=== PATIENT | male | born 1965 | race Two or more races ===

== ENCOUNTER 2018-10-11 07:11 | Observation (INO) | payer OTHER ==
[2018-10-11 07:22] VITALS: BMI 23.0
--- NOTE | 2018-10-11 09:15 | PDOC ---
History of Present Illness - General Chief Complaint: Urinary Problem Stated Complaint: DIZZINESS Time Seen by Provider: 10/11/18 08:10 History Source: Patient Exam Limitations: No Limitations - History of Present Illness Initial Comments: 10/11/18 09:07 53 yo M with a hx of HTN presents to the emergency room with stated chief complaint of hematuria. Per the patient, he states he was having intercourse with his last night when he felt a throbbing sensation in his uncircumcised penis with an eventual snapping sensation. He denies pain, however he had "lots of blood pour out" of the meatus. He endorses having the ability to acquire an erection. This morning, he had an episode of hematuria described as "pure blood" at approximately 6am that was painless. He denies the following: fever, chills, nausea, vomiting, ears/nose/throat pain, visual changes, chest pain, SOB, abdominal pain, dysuria, diarrhea, hematochezia, and leg pain/swelling Pmhx: Refer to above Shx: None Meds: volsartan Allergies: NKDA Social: Denies tobacco, alcohol, and substance abuse. Past History - Past Medical History Allergies/Adverse Reactions: Allergies Allergy/AdvReac Type Severity Reaction Status Date / Time No Known Allergies Allergy Verified 10/11/18 07:19 Home Medications: Ambulatory Orders Losartan/Hydrochlorothiazide [Hyzaar 100-25 Tablet] 1 each PO DAILY 10/11/18 COPD: No HTN: Yes - Suicide/Smoking/Psychosocial Hx Smoking History: Never smoked *Physical Exam - Vital Signs Last Vital Signs Temp Pulse Resp BP Pulse Ox 98 F 78 18 137/87 99 10/11/18 07:14 10/11/18 07:14 10/11/18 07:14 10/11/18 07:14 10/11/18 07:14 - Physical Exam General Appearance: Yes: Nourished, Appropriately Dressed. No: Apparent Distress, Intoxicated Moderate Sedation - Procedure Monitoring Vital Signs: Procedure Monitoring Vital Signs Temperature 98 F 10/11/18 07:14 Pulse Rate 78 10/11/18 07:14 Respiratory Rate 18 10/11/18 07:14 Blood Pressure 137/87 10/11/18 07:14 O2 Sat by Pulse Oximetry (%) 99 10/11/18 07:14 ED Treatment Course - LABORATORY CBC & Chemistry Diagram: 10/11/18 17:14 10/11/18 09:27 Medical Decision Making - Medical Decision Making 10/11/18 14:[address] Gonsales. Will repeat cbc per his request at 5:30 pm to evaluate stability of hemoglobin. *DC/Admit/Observation/Transfer Diagnosis at time of Disposition: Urethral bleeding Hematuria Qualifiers: Hematuria type: unspecified type Qualified Code(s): R31.9 - Hematuria, unspecified - Discharge Dispostion Disposition: HOME Condition at time of disposition: Improved - Referrals - Patient Instructions - Post Discharge Activity
[2018-10-11 09:27] LABS: URINE APPEARANCE CLEAR; URINE BILIRUBIN NEGATIVE (<2.0 mg/dL); URINE COLOR LTYELLOW; URINE GLUCOSE (UA) NEGATIVE (NEGATIVE); URINE KETONE NEGATIVE (NEGATIVE); URINE LEUK ESTERASE NEGATIVE (NEGATIVE); URINE NITRITE NEGATIVE (NEGATIVE); URINE PROTEIN NEGATIVE (NEGATIVE); URINE UROBILINOGEN NEGATIVE mg/dL (0.2-1.0)
[2018-10-11 09:48] LABS: BASO % 0.5 % (0-2.0); EOS % 1.5 % (0-4.5); HEMATOCRIT 46.7 % (35.4-49); HEMOGLOBIN 16.3 GM/dL (11.7-16.9); LYMPH % 34.8 % (8-40); MCH 29.7 pg (25.7-33.7); MCHC 34.9 g/dl (32.0-35.9); MEAN CELL VOLUME 85.2 fl (80-96); MEAN PLT VOLUME 8.7 fl (7.5-11.1); MONO % 11.4 % (3.8-10.2); NEUT % 51.8 % (42.8-82.8); PLATELET COUNT 255 K/MM3 (134-434); RBC 5.49 M/mm3 (4.00-5.60); RDW 13.4 % (11.9-15.9); WHITE BLOOD COUNT 3.6 K/mm3 (4.0-10.0)
--- NOTE | 2018-10-11 10:21 | PDOC ---
Attending Attestation - Resident Resident Name: Sebastian Hill - ED Attending Attestation I have performed the following: I have examined & evaluated the patient, The case was reviewed & discussed with the resident, I agree w/resident's findings & plan, Exceptions are as noted - HPI HPI: 10/11/18 10:19 53 M with h/o HTN presents to ED with bleeding from his penis after sex. Pt states he was having sex w/ his when he felt a "snap". Denies any significant pain but states that he saw blood coming out of his meatus. Denies swelling to scrotum or penis. Did not see any lacerations. No F/C. No abdominal/ flank pain. - Physicial Exam PE: 10/11/18 10:20 "GENERAL: Awake, alert, and fully oriented, in no acute distress. HEAD: No signs of trauma EYES: PERRLA, EOMI, sclera anicteric, conjunctiva clear ENT: Auricles normal inspection, hearing grossly normal, nares patent, oropharynx clear without exudates. Moist mucosa NECK: Nontender, no stepoffs, Normal ROM, supple, no lymphadenopathy, JVD, or masses LUNGS: Breath sounds equal, clear to auscultation bilaterally. No wheezes, and no crackles HEART: Regular rate and rhythm, normal S1 and S2, no murmurs, rubs or gallops ABDOMEN: Soft, nontender, normoactive bowel sounds. No guarding, no rebound. No masses EXTREMITIES: Normal range of motion, no edema. No clubbing or cyanosis. No cords, erythema, or tenderness NEUROLOGICAL: Cranial nerves II through XII intact. 5/5 strength and sensation in all extremities, Normal speech, normal gait, normal cerebellar function SKIN: Warm, Dry, normal turgor, no rashes or lesions noted. : blood at meatus, uncircumcised, frenulum intact, no scrotal pain or masses, no external signs of trauma - Medical Decision Making 10/11/18 10:21 53 M with bleeding from urethral meatus after sex. No signs of external trauma. Concerning for urethral injury. - Labs, UA - Urology c/s 10/11/18 12:29 Labs wnl UA with + WBC and RBCs Dr. Hill spoke with Dr. Gonsales, who recommends abx and outpt f/u for cysto Will repeat CBC at this time, if stable will DC 10/11/18 14:30 Repeat CBC with 1.4u drop in Hb Dr. Gonsales paged once more to discuss plan 10/11/18 14:34 Dr. Gonsales recommends continued trending of CBC Will admit obs at this time
[2018-10-11 10:29] LABS: ALBUMIN 4.2 g/dl (3.4-5.0); ALK PHOS 65 U/L (45-117); ANION GAP 7 MMOL/L (8-16); BILIRUBIN,TOTAL 0.8 mg/dL (0.2-1); BLOOD UREA NITROGEN 22 mg/dL (7-18); CALCIUM 9.2 mg/dL (8.5-10.1); CHLORIDE 99 mmol/L (98-107); CO2 31 mmol/L (21-32); CREATININE 0.8 mg/dL (0.55-1.3); GLUCOSE,RANDOM 107 mg/dL (74-106); POTASSIUM 3.7 mmol/L (3.5-5.1); SGOT/AST 17 U/L (15-37); SGPT/ALT 27 U/L (13-61); SODIUM 137 mmol/L (136-145); TOT PROT 7.4 g/dl (6.4-8.2)
[2018-10-11 13:24] LABS: BASO % 0.5 % (0-2.0); HEMATOCRIT 42.6 % (35.4-49); HEMOGLOBIN 14.9 GM/dL (11.7-16.9); LYMPH % 30.2 % (8-40); MCH 29.6 pg (25.7-33.7); MCHC 34.9 g/dl (32.0-35.9); MEAN CELL VOLUME 84.7 fl (80-96); MEAN PLT VOLUME 8.8 fl (7.5-11.1); MONO % 10.1 % (3.8-10.2); NEUT % 58.2 % (42.8-82.8); PLATELET COUNT 251 K/MM3 (134-434); RBC 5.02 M/mm3 (4.00-5.60); RDW 13.2 % (11.9-15.9); WHITE BLOOD COUNT 3.9 K/mm3 (4.0-10.0)
--- NOTE | 2018-10-11 15:17 | HP ---
CHIEF COMPLAINT: hematuria PCP: n/a HISTORY OF PRESENT ILLNESS: Patient is a 53 yo, honduran speaking M with a PMHx of HTN, presented after noticing gross hematuria while urinating. He says he was having sexual intercouse with his last night when he felt a throbbing sensation and a snap. He says his was on top and he felt his penis bend. He then had blood pour out of his meatus. This morning he woke up and also noticed more hematuria. He currently denies pain. In the ER he urinated once and as he was finishing, gross blood was noticed, which was witnessed by ED staff. Patient denies dizziness, sob, nausea, vomiting. ER course was notable for: (1) Hgb 16.3 > 14.9 (2) Dr. Gonsales notified. Wanted to trend CBC. PAST MEDICAL HISTORY: HTN Social History: Smoking: denies Alcohol: occasionally Drugs: denies Family History: Allergies No Known Allergies Allergy (Verified 10/11/18 07:19) HOME MEDICATIONS: Home Medications Medication Instructions Recorded Losartan/Hydrochlorothiazide 1 each PO DAILY 10/11/18 [Hyzaar 100-25 Tablet] REVIEW OF SYSTEMS CONSTITUTIONAL: Absent: fever, chills, diaphoresis, generalized weakness, malaise, loss of appetite, weight change HEENT: Absent: rhinorrhea, nasal congestion, throat pain, throat swelling, difficulty swallowing, mouth swelling, ear pain, eye pain, visual changes CARDIOVASCULAR: Absent: chest pain, syncope, palpitations, irregular heart rate, lightheadedness , peripheral edema RESPIRATORY: Absent: cough, shortness of breath, dyspnea with exertion, orthopnea, wheezing, stridor, hemoptysis GASTROINTESTINAL: Absent: abdominal pain, abdominal distension, nausea, vomiting, diarrhea, constipation, melena, hematochezia GENITOURINARY: hematuria Absent: dysuria, frequency, urgency, hesitancy, flank pain, genital pain MUSCULOSKELETAL: Absent: myalgia, arthralgia, joint swelling, back pain, neck pain SKIN: Absent: rash, itching, pallor HEMATOLOGIC/IMMUNOLOGIC: Absent: easy bleeding, easy bruising, lymphadenopathy, frequent infections ENDOCRINE: Absent: unexplained weight gain, unexplained weight loss, heat intolerance, cold intolerance NEUROLOGIC: Absent: headache, focal weakness or paresthesias, dizziness, unsteady gait, seizure, mental status changes, bladder or bowel incontinence PSYCHIATRIC: Absent: anxiety, depression, suicidal or homicidal ideation, hallucinations. PHYSICAL EXAMINATION Vital Signs - 24 hr 10/11/18 07:14 Temperature 98 F Pulse Rate 78 Respiratory 18 Rate Blood Pressure 137/87 O2 Sat by Pulse 99 Oximetry (%) GENERAL: Awake, alert, and fully oriented, in no acute distress. EYES: Pupils equal, round and reactive to light, extraocular movements intact, sclera anicteric EARS, NOSE, THROAT: oropharynx clear without exudates. Moist mucous membranes. NECK: Nsupple without lymphadenopathy, JVD, or masses. LUNGS: Breath sounds equal, clear to auscultation bilaterally. HEART: Regular rate and rhythm, normal S1 and S2 without murmur, rub or gallop. ABDOMEN: Soft, nontender, not distended, normoactive bowel sounds MUSCULOSKELETAL: Normal range of motion at all joints. UPPER EXTREMITIES: 2+ pulses, warm, well-perfused. No peripheral edema. LOWER EXTREMITIES: 2+ pulses, warm. No peripheral edema. NEUROLOGICAL: Cranial nerves II-XII intact. Normal speech. Normal gait. SKIN: Warm, dry, normal turgor, no rashes or lesions noted, normal capillary refill. :no external signs of trauma, uncircumsized, blood at meatus, no scrotal pain or masses, Laboratory Results - last 24 hr 10/11/18 10/11/18 10/11/18 09:05 09:27 09:27 WBC 3.6 L RBC 5.49 Hgb 16.3 Hct 46.7 MCV 85.2 MCH 29.7 MCHC 34.9 RDW 13.4 Plt Count 255 MPV 8.7 Absolute Neuts (auto) 1.9 Neutrophils % 51.8 Lymphocytes % 34.8 Monocytes % 11.4 H Eosinophils % 1.5 Basophils % 0.5 Nucleated RBC % 0 PT with INR Cancelled INR Cancelled PTT (Actin FS) Cancelled Sodium Potassium Chloride Carbon Dioxide Anion Gap BUN Creatinine Creat Clearance w eGFR Random Glucose Calcium Total Bilirubin AST ALT Alkaline Phosphatase Total Protein Albumin Urine Color Ltyellow Urine Appearance Clear Urine pH 7.0 Ur Specific [place] 1.013 Urine Protein Negative Urine Glucose (UA) Negative Urine Ketones Negative Urine Blood 3+ H Urine Nitrite Negative Urine Bilirubin Negative Urine Urobilinogen Negative Ur Leukocyte Esterase Negative Urine WBC (Auto) 68 Urine RBC (Auto) 264 Blood Type Antibody Screen 10/11/18 10/11/18 10/11/18 09:27 09:27 13:15 WBC 3.9 L RBC 5.02 Hgb 14.9 Hct 42.6 MCV 84.7 MCH 29.6 MCHC 34.9 RDW 13.2 Plt Count 251 MPV 8.8 Absolute Neuts (auto) 2.3 Neutrophils % 58.2 Lymphocytes % 30.2 Monocytes % 10.1 Eosinophils % 1.0 Basophils % 0.5 Nucleated RBC % 0 PT with INR INR PTT (Actin FS) Sodium 137 Potassium 3.7 Chloride 99 Carbon Dioxide 31 Anion Gap 7 L BUN 22 H Creatinine 0.8 Creat Clearance w eGFR > 60 Random Glucose 107 H Calcium 9.2 Total Bilirubin 0.8 AST 17 ALT 27 Alkaline Phosphatase 65 Total Protein 7.4 Albumin 4.2 Urine Color Urine Appearance Urine pH Ur Specific [place] Urine Protein Urine Glucose (UA) Urine Ketones Urine Blood Urine Nitrite Urine Bilirubin Urine Urobilinogen Ur Leukocyte Esterase Urine WBC (Auto) Urine RBC (Auto) Blood Type O POSITIVE Antibody Screen Negative ASSESSMENT/PLAN: 53 yo, honduran speaking M with a PMHx of HTN, presented with hematuria after sexual intercouse with . #Hematuria -secondary to urethral trauma -Hgb 16.3> 14.9 -Trend Hgb -Dr. Mikala hernandez (Urology) -currently asymptomatic -In ER, hematuria when urinating. #HTN -cont. Losartin/HCTZ -monitor #FEN -no fluids -wnl -low sodium diet #Ppx -EAB dispo: Likely discharge if next Hgb stable. Visit type - Emergency Visit Emergency Visit: Yes ED Registration Date: 10/11/18 Care time: The patient presented to the Emergency Department on the above date and was hospitalized for further evaluation of their emergent condition. - New Patient This patient is new to me today: Yes Date on this admission: 10/12/18 - Critical Care Critical Care patient: No
--- NOTE | 2018-10-11 15:59 | PN ---
Teaching Attending Note Name of Resident: Atul Velásquez ATTENDING PHYSICIAN STATEMENT I saw and evaluated the patient. I reviewed the resident's note and discussed the case with the resident. I agree with the resident's findings and plan as documented with exceptions below. SUBJECTIVE: 53 yom with PMhx of HTN, comes with hematuria after sexual intercourse with his last night. Reports hematuria yesterday, today in the ED, voided, noticed blood at the meatus.Has been voiding freely with no concerns, denies any abdominal or back pain, pain with urination or concerns otherwise. Dr. Gonsales was contacted from ED, patient was advised outpatient follow up for cystogram. patient was advised follow up CBC and if stable with no concerns, discharge with outpatient follow up. 12 point ROs done, neg except above. Reports PCP in [place], gets his medications from there, no established care in the area. OBJECTIVE: Vital Signs Period Temp Pulse Resp BP Sys/Gonzales Pulse Ox Last 24 Hr 98 F 78 18 137/87 99 Intake & Output 10/08/18 10/09/18 10/10/18 10/11/18 23:59 23:59 23:59 23:59 Weight 147 lb GENERAL: Awake, alert, and fully oriented, in no acute distress. HEAD: Normal with no signs of trauma. EYES: Pupils equal, round and reactive to light, extraocular movements intact, sclera anicteric, conjunctiva clear. No lid lag. EARS, NOSE, THROAT: Ears normal, nares patent, oropharynx clear without exudates. Moist mucous membranes. NECK: Normal range of motion, supple without lymphadenopathy, JVD, or masses. LUNGS: Breath sounds equal, clear to auscultation bilaterally. No wheezes, and no crackles. No accessory muscle use. HEART: Regular rate and rhythm, normal S1 and S2 without murmur, rub or gallop. ABDOMEN: Soft, nontender, not distended, normoactive bowel sounds, no guarding, no rebound, no masses. No hepatomegaly or splenomegaly. MUSCULOSKELETAL: Normal range of motion at all joints. No bony deformities or tenderness. No CVA tenderness. GEnital blood at meatus, no swelling, no pelvic/scrotal tenderness, non tender penile shaft UPPER EXTREMITIES: 2+ pulses, warm, well-perfused. No cyanosis. No clubbing. No peripheral edema. LOWER EXTREMITIES: 2+ pulses, warm, well-perfused. No calf tenderness. No peripheral edema. NEUROLOGICAL: Cranial nerves II-XII intact. Normal speech. Gait not observed PSYCHIATRIC: Cooperative. Good eye contact. Appropriate mood and affect. SKIN: Warm, dry, normal turgor, no rashes or lesions noted, normal capillary refill. Home Medications Medication Instructions Recorded Losartan/Hydrochlorothiazide 1 each PO DAILY 10/11/18 [Hyzaar 100-25 Tablet] Laboratory Results - last 24 hr 10/11/18 10/11/18 10/11/18 09:05 09:27 09:27 WBC 3.6 L RBC 5.49 Hgb 16.3 Hct 46.7 MCV 85.2 MCH 29.7 MCHC 34.9 RDW 13.4 Plt Count 255 MPV 8.7 Absolute Neuts (auto) 1.9 Neutrophils % 51.8 Lymphocytes % 34.8 Monocytes % 11.4 H Eosinophils % 1.5 Basophils % 0.5 Nucleated RBC % 0 PT with INR Cancelled INR Cancelled PTT (Actin FS) Cancelled Sodium Potassium Chloride Carbon Dioxide Anion Gap BUN Creatinine Creat Clearance w eGFR Random Glucose Calcium Total Bilirubin AST ALT Alkaline Phosphatase Total Protein Albumin Urine Color Ltyellow Urine Appearance Clear Urine pH 7.0 Ur Specific [place] 1.013 Urine Protein Negative Urine Glucose (UA) Negative Urine Ketones Negative Urine Blood 3+ H Urine Nitrite Negative Urine Bilirubin Negative Urine Urobilinogen Negative Ur Leukocyte Esterase Negative Urine WBC (Auto) 68 Urine RBC (Auto) 264 Blood Type Antibody Screen 10/11/18 10/11/18 10/11/18 09:27 09:27 13:15 WBC 3.9 L RBC 5.02 Hgb 14.9 Hct 42.6 MCV 84.7 MCH 29.6 MCHC 34.9 RDW 13.2 Plt Count 251 MPV 8.8 Absolute Neuts (auto) 2.3 Neutrophils % 58.2 Lymphocytes % 30.2 Monocytes % 10.1 Eosinophils % 1.0 Basophils % 0.5 Nucleated RBC % 0 PT with INR INR PTT (Actin FS) Sodium 137 Potassium 3.7 Chloride 99 Carbon Dioxide 31 Anion Gap 7 L BUN 22 H Creatinine 0.8 Creat Clearance w eGFR > 60 Random Glucose 107 H Calcium 9.2 Total Bilirubin 0.8 AST 17 ALT 27 Alkaline Phosphatase 65 Total Protein 7.4 Albumin 4.2 Urine Color Urine Appearance Urine pH Ur Specific [place] Urine Protein Urine Glucose (UA) Urine Ketones Urine Blood Urine Nitrite Urine Bilirubin Urine Urobilinogen Ur Leukocyte Esterase Urine WBC (Auto) Urine RBC (Auto) Blood Type O POSITIVE Antibody Screen Negative ASSESSMENT AND PLAN: 53 yom with hematuria after intercourse, suspected from penile injury. -Hematuria after sexual intercourse, likely penile injury -HTN Plan: Repeat CBC. Voiding freely, no concerns for retention. IF CBC stable, d/c later today with outpatient follow up with Dr. Gonsales. Plan discussed with patient in detail, all questions answered. ED observation. Total admit time spent 50 min.
[2018-10-11 16:12] VITALS: TEMP 98.2
[2018-10-11 17:26] LABS: BASO % 0.5 % (0-2.0); EOS % 4.2 % (0-4.5); HEMATOCRIT 43.3 % (35.4-49); HEMOGLOBIN 14.8 GM/dL (11.7-16.9); LYMPH % 35.6 % (8-40); MCH 29.3 pg (25.7-33.7); MCHC 34.2 g/dl (32.0-35.9); MEAN CELL VOLUME 85.8 fl (80-96); MEAN PLT VOLUME 8.7 fl (7.5-11.1); MONO % 10.2 % (3.8-10.2); NEUT % 49.5 % (42.8-82.8); PLATELET COUNT 243 K/MM3 (134-434); RBC 5.05 M/mm3 (4.00-5.60); RDW 13.4 % (11.9-15.9); WHITE BLOOD COUNT 4.7 K/mm3 (4.0-10.0)
[2018-10-11 18:52] VITALS: BP 123/86; PULSE 66
--- NOTE | 2018-10-12 15:05 | DS ---
Physical Exam: SUBJECTIVE: Patient seen and examined. Denies penile pain. His last void was without blood. OBJECTIVE: Vital Signs Period Temp Pulse Resp BP Sys/Gonzales Pulse Ox Last 24 Hr 98.2 F 66-71 16-18 123-133/85-86 97-98 PHYSICAL EXAM GENERAL: The patient is awake, alert, and fully oriented, in no acute distress. HEAD: Normal with no signs of trauma. EYES: PERRL, extraocular movements intact, sclera anicteric, conjunctiva clear. ENT: Ears normal, nares patent, oropharynx clear without exudates, moist mucous membranes. NECK: Trachea midline, full range of motion, supple. LUNGS: Breath sounds equal, clear to auscultation bilaterally, no wheezes, no crackles, no accessory muscle use. HEART: Regular rate and rhythm, S1, S2 without murmur, rub or gallop. ABDOMEN: Soft, nontender, nondistended, normoactive bowel sounds, no guarding, no rebound, no hepatosplenomegaly, no masses. EXTREMITIES: 2+ pulses, warm, well-perfused, no edema. NEUROLOGICAL: Cranial nerves II through XII grossly intact. Normal speech, gait not observed. LABS Laboratory Results - last 24 hr 10/11/18 10/11/18 17:14 17:16 WBC 4.7 RBC 5.05 Hgb 14.8 Hct 43.3 MCV 85.8 MCH 29.3 MCHC 34.2 RDW 13.4 Plt Count 243 MPV 8.7 Absolute Neuts (auto) 2.3 Neutrophils % 49.5 Lymphocytes % 35.6 Monocytes % 10.2 Eosinophils % 4.2 D Basophils % 0.5 Nucleated RBC % 0 Blood Type O POSITIVE HOSPITAL COURSE: Date of Admission:10/11/18 Patient is a 53 yo, uzbek speaking M with a PMHx of HTN, presented after noticing gross hematuria while urinating. He says he was having sexual intercouse with his last night when he felt a throbbing sensation and a snap. He says his was on top and he felt his penis bend. This morning he woke up and also noticed more hematuria. Urology was consulted and requested observation. Patient was monitored. CBC remained stable. Patient medically cleared for discharge. He has agreed to follow up with Urology after discharge for further testing. Patient also does not have PCP and has agreed to follow me at the clinic. All questions answered. Date of Discharge: 10/12/18 Minutes to complete discharge: 35 Discharge Summary Reason For Visit: SUICIDE ATTEMPT BY DRUG INGESTION Condition: Improved - Instructions Diet, Activity, Other Instructions: You were admitted because of blood in your urine after sexual intercourse. You will need to call your urologist on 10/13 and make an appointment for further testing (Cystogram on Saturday) You will also need to make an appointment with your primary care doctor. If you start to have dizziness, lightheadedness, pain and worsening bleeding, please come back to the emergency room. Avoid sexual intercourse until evaluated by Urologist. Referrals: Travis Gonsales MD., [Staff Physician] - 10/13/18 Kev Mcdonald MD [Staff Physician] - Disposition: HOME - Home Medications Comprehensive Discharge Medication List: Ambulatory Orders Losartan/Hydrochlorothiazide [Hyzaar 100-25 Tablet] 1 each PO DAILY 10/11/18 This patient is new to me today: Yes Date on this admission: 10/12/18 Emergency Visit: Yes ED Registration Date: 10/11/18 Care time: The patient presented to the Emergency Department on the above date and was hospitalized for further evaluation of their emergent condition. Critical Care patient: No - Discharge Referral Referred to [facility] No
== END 2018-10-11 21:34 | disposition home or self-care (01) ==
LOC: JER 07:11 → JERBED 15:04 → UNDOADMOB 16:45
PROVIDERS: ADMIT Hospitalist; ATTEND Hospitalist
DX: N36.8 Other specified disorders of urethra (principal); R31.9 Hematuria, unspecified; I10 Essential (primary) hypertension
CPT/HCPCS: 36415; 80053; 81003; 81015; 85025; 86850; 86900; 86901; 87086; 99283-25; G0378